=== PATIENT | female | born 1995 | race Caucasian/White ===

== ENCOUNTER 2016-05-23 19:19 | Emergency (ER) | payer OTHER | END 2016-05-23 20:46 | disposition home or self-care (01) | LOC: ER 19:19 | DX: J03.90 Acute tonsillitis, unspecified (principal); R10.11 Right upper quadrant pain; R11.0 Nausea; R19.7 Diarrhea, unspecified; F41.9 Anxiety disorder, unspecified; G43.909 Migraine, unspecified, not intractable, without status migrainosus; Z87.891 Personal history of nicotine dependence | CPT/HCPCS: 36415; 96361; 96374; 96375; J1100; J1885 ==